=== PATIENT | male | born 1955 | race Caucasian/White ===

== ENCOUNTER 2018-10-11 03:50 | Emergency (ER) | payer OTHER ==
[~2018-10-11] VITALS: Ht 160 cm; Wt 61.0 kg
[2018-10-11 05:16] LABS: BASOPHILS % 0.6 % (0.0-2.0); EOSINOPHILS % 0.9 % (0.0-5.0); HEMATOCRIT. 46.5 % (42.0-52.0); HEMOGLOBIN. 16.2 g/dL (14.0-18.0); MEAN CORPUSCULAR HEMOGLOBIN 30.9 pg (28.0-32.0); MEAN CORPUSCULAR VOLUME 88.8 fL (80.0-94.0); MEAN PLATELET VOLUME 9.7 fl (7.4-10.4); MONOCYTES % 4.7 % (2.0-8.0); NEUTROPHILS % 79.8 % (40.0-76.0); PLATELET 315 x1000/uL (130-400); RED BLOOD CELL COUNT 5.23 mill/uL (4.7-6.1); RED CELL DISTRIBUTION WIDTH 13.9 % (11.6-14.6)
[2018-10-11 05:18] LABS: CHLORIDE 103 mEq/L (98-107)
[2018-10-11] MEDS ORDERED: CLONIDINE 0.1MG TABLET PO ONE (05:30)
[2018-10-11] MEDS ORDERED: AMLODIPINE 10MG TABLET PO ONE (05:30)
[2018-10-11 05:50] LABS: CLARITY URINE CLEAR (CLEAR); COLOR URINE YELLOW (YELLOW); KETONES URINE NEGATIVE (NEGATIVE); LEUKOCYTE ESTERASE URINE NEGATIVE (NEGATIVE); NITRITE URINE NEGATIVE (NEGATIVE); OCCULT BLOOD URINE NEGATIVE (NEGATIVE); PH URINE 6.5 (4.5-8.0); PROTEIN URINE TRACE (NEGATIVE); SPECIFIC GRAVITY URINE 1.013 (1.005-1.030); UROBILINOGEN URINE 0.2 E.U./dL (0.2-1.0)
[2018-10-11 06:50] LABS: PARTIAL THROMBOPLASTIN TIME 28.5 sec (23.4-31.0)
[2018-10-11] MEDS ORDERED: ASPIRIN 325MG EC TABLET PO ONE (08:45)
[2018-10-11 11:04] VITALS: BP 121/70
== END 2018-10-11 11:43 | disposition short-term general hospital (02) ==
LOC: ER 03:50 → CANBEDREQ 19:34
DX: S30.1XXA Contusion of abdominal wall, initial encounter (principal); I10 Essential (primary) hypertension; I25.2 Old myocardial infarction; X58.XXXA Exposure to other specified factors, initial encounter; Y93.89 Activity, other specified; Y92.89 Other specified places as the place of occurrence of the external cause; Y99.8 Other external cause status
CPT/HCPCS: 36415; 71045; 76700; 80053; 81003; 83690; 84484; 85025; 85610; 85730; 93005; 99285; Z7610